=== PATIENT | female | born 1955 | race Asian ===

== ENCOUNTER 2017-06-15 00:51 | Emergency (ER) | payer MEDICAID ==
[~2017-06-15] VITALS: Ht 162.6 cm; Wt 54.4 kg
[2017-06-15 00:53] VITALS: BP_SYST 148
[2017-06-15 01:45] VITALS: BP_SYST 144
== END 2017-06-15 01:45 | disposition home or self-care (01) ==
LOC: SED 00:51
DX: I10 Essential (primary) hypertension (principal); E11.9 Type 2 diabetes mellitus without complications; Z90.710 Acquired absence of both cervix and uterus
CPT/HCPCS: 99283